=== PATIENT | male | born 1945 | race Caucasian/White ===

== ENCOUNTER 2023-02-22 16:42 | Observation (INO) | payer OTHER ==
[~2023-02-22] VITALS: Ht 172.7 cm; Wt 101.4 kg
[~2023-02-22 16:42] MED LIST: ASPI81CH PO; ATOR20 PO; FENO145 PO; FERR325 PO; GLIP10 PO; INSULANPEN INJ; METF500C PO; METO50 PO; Mobic7.5 MG PO; Novofine 321 EACH MC; OMEP20ER PO; Prozac20 MG PO
[2023-02-22 17:17] LABS: BASOPHILS ABSOLUTE AUTO 0.03 K/mm3 (0.00-0.23); BASOPHILS PERCENT AUTO 0 % (0-2); EOSINOPHILS ABSOLUTE AUTO 0.07 K/mm3 (0.00-0.68); EOSINOPHILS PERCENT AUTO 1 % (0-6); Hematocrit 46.8 % (37.0-53.0); Hemoglobin 15.1 g/dL (13.5-17.5); IMMATURE GRAN ABSOLUTE AUTO 0.03 K/mm3 (0.00-0.10); IMMATURE GRAN PERCENT AUTO 0 % (0-1); LYMPHOCYTES ABSOLUTE AUTO 1.54 K/mm3 (0.84-5.20); LYMPHOCYTES PERCENT AUTO 15 % (21-46); MONOCYTES PERCENT AUTO 8 % (4-13); Mean Corpuscular HGB 28.7 pg (26.0-34.0); Mean Corpuscular HGB Conc 32.3 g/dL (31.5-36.5); Mean Corpuscular Volume 89 fL (80-100); Mean Platelet Volume 11.6 fL (9.1-12.4); NEUTROPHILS ABSOLUTE AUTO 7.55 K/mm3 (1.96-9.15); NEUTROPHILS PERCENT AUTO 75 % (41-73); Platelet Count 247 K/mm3 (150-400); RDW Standard Deviation 45.1 fL (35.1-46.3); Red Blood Cell Count 5.26 M/mm3 (4.30-5.90); White Blood Cell Count 10.02 K/mm3 (4.00-11.30)
[2023-02-22 17:42] LABS: Albumin, Blood 3.3 g/dL (3.4-5.0); Albumin/Globulin Ratio 0.9 (0.8-1.8); Bilirubin, Total 0.3 mg/dL (0.1-1.0); Bun/Creatinine Ratio 20.9 (12.0-20.0); Calcium, Blood 8.3 mg/dL (8.5-10.1); Creatinine, Blood 2.92 mg/dL (0.60-1.20); Globulin, Blood 3.8 g/dL (2.2-4.0); Potassium, Blood 4.9 mmol/L (3.5-5.5); Total Protein, Blood 7.1 g/dL (6.4-8.2)
[2023-02-22 18:36] LABS: Source, Urine Straight Cath
[2023-02-22 18:40] LABS: Appearance, Urine Clear (Clear); Bilirubin, Urine Neg (Neg); Blood, Urine Neg (Neg); Color, Urine Yellow (P-Yellow); Glucose Qualitative, Urine 3+ (Neg); Ketones, Urine Neg (Neg); Leukocyte Esterase, Urine Neg (Neg); Nitrite, Urine Neg (Neg); Protein, Urine 1+ (Neg); Specific Gravity, Urine 1.015 (1.003-1.022); Urobilinogen, Urine NORM (Normal)
[2023-02-22 18:52] LABS: Bicarbonate Venous 17.3 mmol/L (24.0-30.0); PCO2 Venous 55.6 mmHg (38-42); pH Blood Venous 7.19 (7.34-7.37)
[2023-02-22] MEDS ORDERED: Amlodipine Bes2.5 MG PO (19:57)
[2023-02-22] MEDS ORDERED: SYNJARDY 12.5-1 EAC3 PO (19:58)
[2023-02-22] MEDS ORDERED: GABA300 PO (19:58)
[2023-02-22] MEDS ORDERED: OLOPATADINE HCL5 ML OP (19:59)
[2023-02-22] MEDS ORDERED: ALBU90OI INH (21:34)
[2023-02-22] MEDS ORDERED: OLOPATADINE HCL5 ML BOTHEYES (21:35)
--- NOTE | 2023-02-23 04:09 | NUR ---
HIFT SUMMARY NOC ADMIT FROM ED WITH LUDA. [facility] WEAK[facility]. HAS HAD OF C/O OF FATIGUE AND FEELING LIGHTHEADED LAST FEW DAYS. PT STATES STARTING OZEMPIC RECENTLY FOR WEIGHT LOSS. PT HAS NS INFUSING @ 150 MLS/HR. PT IS DM2 AND HAD CBG OF 77 AND 87 UPON ARRIVAL TO MED FLOOR. EVENING DOSE OF LONG ACTING INSULING 34 UNITS WAS DECREASED TO 8 UNITS AFTER NOTIFYING HOSPITALIST. PT HAD CRITICAL ABH PH OF 7.19 IN ED. PT IS ON OBSERVATION STATUS GETTING HYDRATION WITH POSSIBLE D/C TODAY IF BP IS STABLE. PT IS CURRENTLY RESTING WITH BED IN LOWEST POSITION, AND CALL LIGHT WITHIN REACH.
[2023-02-23 06:03] LABS: Bun/Creatinine Ratio 29.8 (12.0-20.0); Calcium, Blood 8.7 mg/dL (8.5-10.1); Creatinine, Blood 1.51 mg/dL (0.60-1.20); Potassium, Blood 4.6 mmol/L (3.5-5.5)
--- NOTE | 2023-02-23 10:52 | NUR ---
Pt. is awake in bed and welcomes my visit. Spouse and other family are present. Pt. is pleasant, and rapport is established. Facilitated a life review and considered matters of mando and belief. Pt. displays evidence of being engaged and aware of his prognosis. Pt. verbalizes an expectation that he will be discharged today. Prayed with the Pt. and family. Pt. and spouse verbalize gratitude for the spiritual care visit.
--- NOTE | 2023-02-23 13:09 | NUR ---
DISCHARGE NOTE: PT EDUCATED ON IMPORTANCE OF HYDRATION AND MONTIORING BLOOD PRESSURE DAILY. PT EDUCATED ON DISCHARGE MEDICATION, FOLLOWING UP WITH PCP AND STARTING BLOOD PRESSURE MEDICATIONS SLOWLY. PT DRESSED AND PACKED PERSONAL BELONGS INDEPENDANTLY. PT IV REMOVED BY STATION INSTALLER W/O ANY DIFFICLULTY AND CATHETER TIP[ INTACTED. PT ESCORTED VIA WC BY ABDULLAHI MALCOLM TO THE 2ND FLOOR LOBBY FOR TRANSPORTATION HOME BY .
== END 2023-02-23 13:20 | disposition home or self-care (01) ==
LOC: ER 16:42 → MEDS 16:43
PROVIDERS: Emergency Medicine; Student in an Organized Health Care Education/Training Program; ADMIT Internal Medicine
DX: N17.9 Acute kidney failure, unspecified (principal); I25.10 Atherosclerotic heart disease of native coronary artery without angina pectoris; E11.9 Type 2 diabetes mellitus without complications; Z95.1 Presence of aortocoronary bypass graft; I10 Essential (primary) hypertension; I25.2 Old myocardial infarction
CPT/HCPCS: 36415; 51798; 71045; 76770; 80048; 80053; 82803; 82947; 83880; 84484; 85025; 93005; 93010; 96360; 96361; 96372; 99285-25; A9270; G0378; J1644; J1815; J7030

== ENCOUNTER → 2023-11-12 | Outpatient (CLI) | payer OTHER ==
[~2023-11-12] MED LIST changes: +ALBU90OI INH; +Amlodipine Bes2.5 MG PO; +GABA300 PO; +OLOPATADINE HCL5 ML BOTHEYES; +OLOPATADINE HCL5 ML OP; +SYNJARDY 12.5-1 EAC3 PO
[2023-11-12 14:18] LABS: Creatinine Urine 40.4 mg/dL (27.00-270.00); Microalbumin, Urine Quant. 15.3 mg/L (0.000-20.000); Protein, Urine Quantitative 6.7 mg/dL (0.0-11.9)
== END | disposition home or self-care (01) ==
LOC: LAB SHORT 11:13 → LAB 11:13
PROVIDERS: Internal Medicine Nephrology
DX: N18.30 Chronic kidney disease, stage 3 unspecified (principal); D63.1 Anemia in chronic kidney disease; N25.81 Secondary hyperparathyroidism of renal origin; E78.00 Pure hypercholesterolemia, unspecified; G50.9 Disorder of trigeminal nerve, unspecified; R76.9 Abnormal immunological finding in serum, unspecified; R94.5 Abnormal results of liver function studies; R94.6 Abnormal results of thyroid function studies
CPT/HCPCS: 81050; 82043; 82570; 84156

== ENCOUNTER 2025-08-18 11:51 | Inpatient (IN) | payer OTHER ==
[~2025-08-18] VITALS: Ht 172.7 cm; Wt 90.1 kg
[2025-08-18] MEDS ORDERED: FLU VACC TS2025(65UP)/MF59C/PF 45 MCG/0.5 ML SYRINGE IM SCH (15:20)
[2025-08-18] MEDS ORDERED: Albuterol HFA200 ACT/6.7 GM INH INH PRN (15:20)
[2025-08-18] MEDS ORDERED: NS 1,000 ML IV SCH (15:50)
[2025-08-18] MEDS ORDERED: Insulin Human Lispro 100 Units/ML 3ML Syringe SC SCH (16:30)
[2025-08-18] MEDS ORDERED: MetFORMIN HCl 500 mg PO SCH (17:00)
[2025-08-18 17:06] LABS: Influenza A/2009-H1 Not Detected (NOT DETECT); SARS-Cov-2 (COVID-19), BioFire Detected (NOT DETECT)
[2025-08-18 19:23] VITALS: BP 154/66
[2025-08-18] MEDS ORDERED: Ketorolac Tromethamine 15mg Vial IV PRN (20:50)
[2025-08-18 23:12] VITALS: BP 139/67
[2025-08-19 03:24] VITALS: BP 138/76
--- NOTE | 2025-08-19 04:44 | NUR ---
SHIFT SUMMARY PATIENT ALERT AND ORIENTED X4. PATIENT MAKE NEEDS KNOWN, PLEASANT AND RECEPTIVE DURING CARE. PATIENT ADMITTED TO MEDICAL FLOOR ON HIGH FLOW AIRVO. OXYGEN THERAPY NOW WEANED TO 4L VIA NC. NO ACUTE CHANGES DURING THIS SHIFT, VSS. LACTATED RINGER INFUSING AT 100ML/HR. TELE: A-FLUTTER WITH PVCS. PATIENT IS COVID POSITIVE. PATIENT ABLE TO SELF REPOSITION THROUGHOUT THE SHIFT. MEDICATED PER EMAR. BED LOCKED AND IN LOWEST POSITION. CALL LIGHT WITHIN REACH.
[2025-08-19 05:17] LABS: BASOPHILS ABSOLUTE AUTO 0.01 K/mm3 (0.00-0.23); BASOPHILS PERCENT AUTO 0 % (0-2); EOSINOPHILS ABSOLUTE AUTO 0.00 K/mm3 (0.00-0.68); EOSINOPHILS PERCENT AUTO 0 % (0-6); Hematocrit 36.7 % (37.0-53.0); Hemoglobin 10.9 g/dL (13.5-17.5); IMMATURE GRAN ABSOLUTE AUTO 0.04 K/mm3 (0.00-0.10); IMMATURE GRAN PERCENT AUTO 0 % (0-1); LYMPHOCYTES ABSOLUTE AUTO 0.57 K/mm3 (0.84-5.20); LYMPHOCYTES PERCENT AUTO 5 % (21-46); MONOCYTES ABSOLUTE AUTO 0.78 K/mm3 (0.16-1.47); MONOCYTES PERCENT AUTO 7 % (4-13); Mean Corpuscular HGB Conc 29.7 g/dL (31.5-36.5); Mean Corpuscular Volume 69 fL (80-100); NEUTROPHILS ABSOLUTE AUTO 10.69 K/mm3 (1.96-9.15); NEUTROPHILS PERCENT AUTO 88 % (41-73); NRBC ABSOLUTE 0.00 K/mm3 (0.00-0.02); NRBC Auto 0.0 /100 WBC (0.0-0.2); Platelet Count 390 K/mm3 (150-400); RDW Coefficient Variation 20.4 % (11.7-14.2); RDW Standard Deviation 47.6 fL (35.1-46.3)
[2025-08-19 05:49] LABS: Alanine Aminotransfer (ALT/SGP 16.0 U/L (12-78); Albumin, Blood 2.9 g/dL (3.4-5.0); Albumin/Globulin Ratio 0.7 (0.8-1.8); Anion Gap 9.0 mmol/L (3-11); Aspartate Aminotrans (AST/SGOT 14.0 U/L (12-37); Bilirubin, Total 0.4 mg/dL (0.1-1.0); Blood Urea Nitrogen 11.0 mg/dL (8-24); CO2, Blood 25.0 mmol/L (21-32); Calcium, Blood 8.8 mg/dL (8.5-10.1); Chloride, Blood 107.0 mmol/L (98-108); Creatinine, Blood 0.71 mg/dL (0.60-1.20); Globulin, Blood 4.3 g/dL (2.2-4.0); Glucose, Blood 128.0 mg/dL (70-99); Magnesium, Blood 1.7 mg/dL (1.6-2.4); Potassium, Blood 4.1 mmol/L (3.5-5.5); Sodium, Blood 137.0 mmol/L (136-145); Total Protein, Blood 7.2 g/dL (6.4-8.2)
[2025-08-19] MEDS ORDERED: Remdesivir (EUA) 200 MG in NS 250 ML IV ONE (07:05)
[2025-08-19] MEDS ORDERED: Ipratropium/Albuterol SulF 2.5-0.5MG/3 ML Amp INH SCH (07:45)
[2025-08-19] MEDS ORDERED: Albuterol 2.5 MG/3 ML VIAL INH PRN (07:45)
[2025-08-19 08:00] VITALS: BP 144/73
[2025-08-19 11:27] VITALS: BP 133/76
[2025-08-19 12:00] LABS: Ferritin, Serum 12.0 ng/mL (26-388); Total Iron Binding Capacity 400.0 ug/dL (250-450)
[2025-08-19 14:58] VITALS: BP 129/68
[2025-08-19 16:57] LABS: Acinetobacter baumannii DNA Not Detected copy/mL (NOT DETECT); Enterobacter cloacae DNA Not Detected copy/mL (NOT DETECT); Escherichia coli DNA Not Detected copy/mL (NOT DETECT); Haemophilus influenzae DNA Detected Bin >=10^7 copy/mL (NOT DETECT); Klebsiella aerogenes DNA Not Detected copy/mL (NOT DETECT); Klebsiella oxytoca DNA Not Detected copy/mL (NOT DETECT); Klebsiella pneumoniae DNA Not Detected copy/mL (NOT DETECT); Moraxella catarrhalis DNA Not Detected copy/mL (NOT DETECT); Proteus sp DNA Not Detected copy/mL (NOT DETECT); Pseudomonas aeruginosa DNA Not Detected copy/mL (NOT DETECT); Serratia marcescens DNA Not Detected copy/mL (NOT DETECT); Staphylococcus aureus DNA Not Detected copy/mL (NOT DETECT); Streptococcus agalactiae DNA Not Detected copy/mL (NOT DETECT); Streptococcus pneumoniae DNA Not Detected copy/mL (NOT DETECT); Streptococcus pyogenes DNA Not Detected copy/mL (NOT DETECT)
[2025-08-19 16:58] LABS: Chlamydia pneumonia Not Detected (NOT DETECT); Human Coronavirus RNA Not Detected (NOT DETECT); Human Metapneumovirus RNA Not Detected (NOT DETECT); Influenza virus A RNA Not Detected (NOT DETECT); Influenza virus B RNA Not Detected (NOT DETECT); Respiratory syncytial Vir RNA Not Detected (NOT DETECT); Rhinovirus+Enterovirus RNA Not Detected (NOT DETECT)
--- NOTE | 2025-08-19 18:41 | NUR ---
NOTIFIED BY FRONT LINE SUPERVISOR PT HAD RUN OF TRIGEM. CALL MADE TO MD, NO ANSWER AT THIS TIME. NO OTHER ACUTE CONCERNS THIS SHIFT. PT IS ALERT AND ORIENTED X4 CALLS APPROPRIATELY. SOB WITH EXERTION. CURRENTLY ON 1L NC WITH SCHEDULED BREATHING TREATMENTS. DENIES CHEST PAIN AND PRESSURE.
[2025-08-19 19:36] VITALS: BP 156/71
[2025-08-19 23:25] VITALS: BP 157/98
[2025-08-20] MEDS ORDERED: Lidocaine 4% 1 Patch TOP ONE (02:00)
[2025-08-20 04:46] VITALS: BP 131/73
--- NOTE | 2025-08-20 05:26 | NUR ---
SHIFT SUMMARY PT A&Ox4 AND PLEASANT. PT C/O PAIN AND MEDICATED PER EMAR WITH LITTLE EFFECT. AROUND 2200 PT BECAME SOB AND O2 SATS DROPPED INTO THE MID 80's VIA CONTINIOUS PULSE OX. OXYGEN GRADUALLY INCRASED TO 15L TO MAINTAIN SATS ABOVE 90% AND RT CALLED AND CAME TO PT'S BEDSIDE. PT REPORTED PAIN IN RIGHT RIBS AND STATED IT WAS DIFFICULT TO TAKE DEEP BREATHS D/T THE PAIN. RESIDENT CALLED AND NOTIFIED OF PT's INCREASED O2 NEEDS AND C/O PAIN. ORDER GIVEN TO APPLY HEAT PACK AND GIVE TYLENOL BEFORE TRYING MEDICATIONS THAT COULD POSSIBLY DECREASE RESPIRATIONS. HEAT PACK AND TYLENOL WERE INEFFECTIVE ON PAIN. AND PT WAS SITTING AT EDGE OF BED IN PAIN. CALLED AGAIN AND STATED SHE WOULD PLACE ORDER. THIS NURSE CALLED DR A THIRD TIME, ABOUT AN HOUR LATER, TO REMIND DR ABOUT PAIN MEDICATION ORDER. PAIN MEDS GIVEN PER EMAR WITH GOOD EFFECT. OXYGEN ABLE TO DECREASE TO 3L. PT SLEPT THE REMAINDER OF THE NIGHT. VSS. BED IN LOWEST POSITION AND CALL LIGHT IN REACH.
[2025-08-20 07:32] VITALS: BP 146/78
[2025-08-20] MEDS ORDERED: HYDROcodone 5-APAP 325 TAB PO PRN (08:10)
[2025-08-20] MEDS ORDERED: Polyethylene Glycol 3350 17 gm PO SCH (09:00)
[2025-08-20] MEDS ORDERED: CefTRIAXone Sodium 1,000 MG in NS 100 ML IV SCH (09:00)
[2025-08-20] MEDS ORDERED: Lactobacil 2-S.Thermo-Bifido 1 1 Cap PO SCH (09:00)
[2025-08-20] MEDS ORDERED: Remdesivir (EUA) 100 MG in NS 250 ML IV SCH (12:00)
[2025-08-20] MEDS ORDERED: NS 250 ML IV PRN (13:10)
[2025-08-20 16:17] VITALS: BP 134/85
--- NOTE | 2025-08-20 19:58 | NUR ---
SHIFT SUMMARY PT IS A/OX4. SBA TO BATHROOM. NO ACUTE CHANGES THROUGHOUT THIS SHIFT. ON 2L NC, SATS >90% ON CONT PULSE OX. ON TELE RUNNING AFIB IN THE 'S. PT RECIEVING NORCO PER MAR FOR RIGHT SIDED RIB PAIN. AT BEDSIDE THROUGHOUT THIS AFTERNOON. PT IS PLEASANT AND COOPERATIVE WITH CARE AND CALLS APPROPRIATELY USING THE CALL LIGHT.
[2025-08-20 20:02] VITALS: BP 189/110
[2025-08-20 21:46] VITALS: BP 138/86
[2025-08-21 00:02] VITALS: BP 143/72
--- NOTE | 2025-08-21 02:54 | NUR ---
AUTHOR ALERTED OF V TACH 8 BEATS BY TREAD TUBER MACHINE OPERATOR SAUL PARR. PT DENIES CHEST PAIN/PRESSURE AND ASYMPTOMATIC. PROVIDER ALERTED. NO FURTHER ORDERS AT THIS TIME.
--- NOTE | 2025-08-21 04:38 | NUR ---
MANAGER FORENSIC SUMMARY PT A&OX4, VSS. BRIEF MOMENT OF HIGH BP D/T PAIN. HAS BEEN ASLEEP FOR MOST OF THE NIGHT. CHEST RISE/RESPIRATIONS NOTED. REMAINS ON TELE. A-FIB AT 108 W/ PVCS. DID HAVE V TACH 8 BEATS. ASYMPTOMATIC. PROVIDER NOTIFIED. NO FURTHER ORDERS AT THIS TIME. REMAINS ON 2L NC WITH CONT PULSE OX SHOWING SATS >=90%. TORADOL ADMIN 1X FOR PAIN W/ GOOD EFFECT. UP W/ SBA INTERMITTENTLY TO USE RESTROOM THROUGHOUT THE NIGHT. BED RAILS UP X 2, BED IN LOWEST POSITION, BED WHEELS LOCKED, PERSONAL BELONGINGS AND CALL LIGHT WITHIN REACH FOR SAFETY.
[2025-08-21 04:57] VITALS: BP 135/83
--- NOTE | 2025-08-21 06:24 | NUR ---
IT PROJECT COORDINATOR SUMMARY PT A&OX4, VSS. HAS BEEN ASLEEP FOR MOST OF THE SHIFT SINCE ADMISSION ONTO UNIT. PLACED ON CONT PULSE OX AND O2 INCREASED TO 3L NC W/ SATS >=94%. PT IS RA AT BASELINE. REMAINS ON TELE. SINUS TACH AT 118. [place] REMAINS IN PLACE. BED RAILS UP X 2, BED IN LOWEST POSITION, BED WHEELS LOCKED, PERSONAL BELONGINGS AND CALL LIGHT WITHIN REACH FOR SAFETY.
[2025-08-21 09:51] VITALS: BP 168/75
[2025-08-21 10:17] LABS: BASOPHILS ABSOLUTE AUTO 0.01 K/mm3 (0.00-0.23); BASOPHILS PERCENT AUTO 0 % (0-2); EOSINOPHILS ABSOLUTE AUTO 0.00 K/mm3 (0.00-0.68); EOSINOPHILS PERCENT AUTO 0 % (0-6); Hematocrit 40.7 % (37.0-53.0); Hemoglobin 12.0 g/dL (13.5-17.5); IMMATURE GRAN ABSOLUTE AUTO 0.12 K/mm3 (0.00-0.10); IMMATURE GRAN PERCENT AUTO 1 % (0-1); LYMPHOCYTES ABSOLUTE AUTO 0.53 K/mm3 (0.84-5.20); LYMPHOCYTES PERCENT AUTO 4 % (21-46); MONOCYTES ABSOLUTE AUTO 0.51 K/mm3 (0.16-1.47); MONOCYTES PERCENT AUTO 4 % (4-13); Mean Corpuscular HGB Conc 29.5 g/dL (31.5-36.5); Mean Corpuscular Volume 70 fL (80-100); NEUTROPHILS ABSOLUTE AUTO 12.32 K/mm3 (1.96-9.15); NEUTROPHILS PERCENT AUTO 91 % (41-73); NRBC ABSOLUTE 0.02 K/mm3 (0.00-0.02); NRBC Auto 0.1 /100 WBC (0.0-0.2); Platelet Count 443 K/mm3 (150-400); RDW Coefficient Variation 20.9 % (11.7-14.2); RDW Standard Deviation 49.1 fL (35.1-46.3)
--- NOTE | 2025-08-21 10:20 | NUR ---
THIS RN NOTIFIED BY TELE OF 22 BEAT RUN OF VTACH, FOLLOWED BY SMALLER 5-6 BEAT RUNS OF VTACH. THIS RN IN THE ROOM WITH PT DURING THIS EVENT, PT LYING IN BED NO SIGNS OR SYMPTOMS OF DISTRESS NOTED. PT REPORTS NO SYMPTOMATIC CHANGES. PHYSICAN NOTIFIED.
[2025-08-21 10:38] LABS: Alanine Aminotransfer (ALT/SGP 20.0 U/L (12-78); Albumin, Blood 3.3 g/dL (3.4-5.0); Albumin/Globulin Ratio 0.7 (0.8-1.8); Anion Gap 9.0 mmol/L (3-11); Aspartate Aminotrans (AST/SGOT 13.0 U/L (12-37); Bilirubin, Total 0.5 mg/dL (0.1-1.0); Blood Urea Nitrogen 28.0 mg/dL (8-24); CO2, Blood 27.0 mmol/L (21-32); Calcium, Blood 9.2 mg/dL (8.5-10.1); Chloride, Blood 103.0 mmol/L (98-108); Creatinine, Blood 0.74 mg/dL (0.60-1.20); Globulin, Blood 4.6 g/dL (2.2-4.0); Glucose, Blood 229.0 mg/dL (70-99); Potassium, Blood 3.7 mmol/L (3.5-5.5); Sodium, Blood 135.0 mmol/L (136-145); Total Protein, Blood 7.9 g/dL (6.4-8.2)
--- NOTE | 2025-08-21 12:06 | NUR ---
THIS RN NOTIFIED BY PRODUCT CONTROLLER OF ANOTHER SMALL RUN OF VTACH. PT REMAINS ASYMPTOMATIC.
[2025-08-21] MEDS ORDERED: Magnesium Sulf 2 GM/Water 50ML 50 ML IV ONE (14:15)
[2025-08-21 15:43] VITALS: BP 140/77
--- NOTE | 2025-08-21 19:25 | NUR ---
SHIFT SUMMARY PT IS A/OX4. SBA TO BATHROOM. PT CONTINUES TO REPORT PAIN TO THE RIGHT RIBS, MEDICATED PER MAR. ON RA THROUGHOUT THIS SHIFT, SATS MAINTAINING >90% WITH OCCASSIONAL DESATS INTO THE HIGH 80'S WITH QUICK RETURN. PRIOR TO DISCONTINUATION OF TELE, PT RUNNING AFIB IN THE 100-110'S. MULTIPLE RUNS OF VTACH, SEE PREVIOUS NOTES. PHYSICANS AWARE. PT REMAINS ASYMPTOMATIC. PT IS PLEASANT AND COOPERATIVE WITH CARE AND CALLS APPROPRIATELY.
[2025-08-21 19:55] VITALS: BP 156/80
[2025-08-22 02:55] VITALS: BP 141/72
--- NOTE | 2025-08-22 04:42 | NUR ---
SHIFT SUMMARY NO ACUTE CHANGES THIS SHIFT, MEDICATED PER MAR FOR C/O R RIB PAIN, SLEPT INTERMITTENTLY Y/O THE NIGHT, BEDRESTING AT THIS TIME, CALL LIGHT IN REACH, WILL CONT TO MONITOR UNTIL REPORT GIVEN TO ONCOMING NURSE.
[2025-08-22 07:52] VITALS: BP 112/97
--- NOTE | 2025-08-22 09:00 | NUR ---
pt laying in bed with family in room, a/ox4, occ forgetful, pleasant and cooperative with care, follows commands well, lungs are clear in upper lux, course in bases, on r/a, resp even and unlabored, reports occ productive cough of white sputum, hrirr, no edema noted to b/l le, ppp+1, cap refill<3 sec, vs stable, afebrile, piv to r wrist, site is clear and patent, btx4, abd flat soft nontender, voids without diff, no bm in last few days, he did recieve miralax, skin c/w/d, slim, sherry, call light in reach.
[2025-08-22] MEDS ORDERED: FEROSUL325 M1 PO (14:28)
[2025-08-22] MEDS ORDERED: DECADRON6 M1 PO (14:29)
[2025-08-22] MEDS ORDERED: XARELTO20 MG PO (14:30)
[2025-08-22] MEDS ORDERED: VISBIOME 112.51 EACH PO (14:31)
[2025-08-22] MEDS ORDERED: AMOCLA875 PO (14:31)
--- NOTE | 2025-08-22 15:11 | NUR ---
pt has been discharged to home, went over discharge instructions with him and family they verbalized understanding, new med faxed to [facility], piv removed intact, left via wheelchair with security system technician in attendence with all belongings.
== END 2025-08-22 15:04 | disposition home or self-care (01) | DRG 177 ==
LOC: ER 11:51 → MEDS 15:06
PROVIDERS: ADMIT Internal Medicine
PROC: XW033E5 Introduction of Remdesivir Anti-infective into Peripheral Vein, Percutaneous Approach, New Technology Group 5 (ICD-10-PCS; principal; 2025-08-18)
PROC: 5A0935A Assistance with Respiratory Ventilation, Less than 24 Consecutive Hours, High Flow/Velocity Cannula (ICD-10-PCS; 2025-08-18)
PROC: 3E03329 Introduction of Other Anti-infective into Peripheral Vein, Percutaneous Approach (ICD-10-PCS; 2025-08-18)
DX: U07.1 COVID-19 (principal); J12.82 Pneumonia due to coronavirus disease 2019; J14 Pneumonia due to Hemophilus influenzae; J96.01 Acute respiratory failure with hypoxia; I48.92 Unspecified atrial flutter; J44.0 Chronic obstructive pulmonary disease with (acute) lower respiratory infection; I47.20 Ventricular tachycardia, unspecified; J44.1 Chronic obstructive pulmonary disease with (acute) exacerbation; I48.91 Unspecified atrial fibrillation; R13.10 Dysphagia, unspecified; I10 Essential (primary) hypertension; S00.03XA Contusion of scalp, initial encounter; E78.5 Hyperlipidemia, unspecified; D50.9 Iron deficiency anemia, unspecified; E11.9 Type 2 diabetes mellitus without complications; R07.81 Pleurodynia; I25.2 Old myocardial infarction; I49.3 Ventricular premature depolarization; Z87.891 Personal history of nicotine dependence; Z79.899 Other long term (current) drug therapy; Z79.82 Long term (current) use of aspirin; W18.30XA Fall on same level, unspecified, initial encounter
CPT/HCPCS: 0202U; 0528U; 36415; 80053; 82728; 82947; 83540; 83550; 83735; 84145; 84484; 85025; 85027; 85379; 92610; 93005; 93010; 94640; 94664; 94762; 99285-25; A9270; J0248; J0696; J1885; J2919; J3475; J7050; J7120